=== PATIENT | male | born 1970 | race Caucasian/White ===

== ENCOUNTER 2017-06-15 21:40 | Emergency (ER) | payer BC ==
[2017-06-15 21:46] VITALS: BP 123/81
--- NOTE | 2017-06-15 22:06 | EDPHY ---
H & P Stated Complaint: FLU LIKE SX X 1 WK/CASTRO, SINUS MARCO, CHEST MARCO Time Seen by Provider: 06/15/17 22:05 HPI/ROS: CHIEF COMPLAINT: Sinus pressure, cough HISTORY OF PRESENT ILLNESS: The patient has a 1 week history of cough and myalgias. He had improvement of his symptoms. His symptoms returned this evening. He complains of frontal sinus pressure as well as some discomfort in his pharynx. He has a dry nonproductive cough. The patient denies significant past medical history. He denies any neck stiffness. He has no complaints of numbness or weakness. Denies abdominal pain, nausea, vomiting or diarrhea. REVIEW OF SYSTEMS: A comprehensive 10 point review of systems is otherwise negative aside from elements mentioned in the history of present illness. Source: Patient - Personal History Current Tetanus Diphtheria and Acellular Pertussis (TDAP): Unsure - Medical/Surgical History Hx Asthma: No Hx Chronic Respiratory Disease: No Hx Diabetes: No Hx Cardiac Disease: No Hx Renal Disease: No Hx Cirrhosis: No Hx Alcoholism: No Hx HIV/AIDS: No Hx Splenectomy or Spleen Trauma: No Other PMH: DENIES - Social History Smoking Status: Never smoked - Physical Exam Exam: General Appearance: Alert, no distress Eyes: Pupils equal and round no pallor or injection ENT, Mouth: Mucous membranes moist Respiratory: There are no retractions, lungs are clear to auscultation Cardiovascular: Regular rate and rhythm Gastrointestinal: Abdomen is soft and nontender, no masses, bowel sounds normal Neurological: A&O, normal motor function, normal sensory exam, normal cranial nerves Skin: Warm and dry, no rashes Musculoskeletal: Neck is supple nontender, no meningeal symptoms Extremities: symmetrical, full range of motion Constitutional: Initial Vital Signs Temperature (C) 37.0 C 06/15/17 21:44 Heart Rate 87 06/15/17 21:44 Respiratory Rate 16 06/15/17 21:44 Blood Pressure 123/81 H 06/15/17 21:44 O2 Sat (%) 97 06/15/17 21:44 O2 Delivery Mode Room Air Allergies/Adverse Reactions: No Known Allergies Allergy (Unverified 06/15/17 21:44) Home Medications: Medication Instructions Recorded NK [No Known Home Meds] 06/15/17 Medical Decision Making ED Course/Re-evaluation: The patient is well-appearing with likely frontal sinusitis in the setting of a recent viral upper respiratory infection. The patient has no clinical evidence of meningitis or pneumonia. I do feel it is reasonable to give him a prescription for antibiotics for possible sinus disease. He is advised to take Tylenol and ibuprofen as needed for pain. He is given customary aftercare instructions and return precautions. Departure - Departure Disposition: Home, Routine, Self-Care Clinical Impression: Sinusitis Condition: Good Instructions: Sinusitis (ED) Additional Instructions: 1. Take Ibuprofen or Motrin 600 mg by mouth three times a day. 2. Take antibiotics as directed Referrals: Shilpa Durand MD [Primary Care Provider] - As per Instructions
[2017-06-15] MEDS ORDERED: AMOXICILLIN/CLAVULANATE POT 875/125 MG TAB PO ONE (22:13)
== END 2017-06-15 22:21 | disposition home or self-care (01) ==
DX: J32.9 Chronic sinusitis, unspecified (principal)

== ENCOUNTER → 2017-09-11 | Outpatient (CLI) | payer BC | LOC: BMCIMAGING 10:12 | PROVIDERS: ATTEND Family Medicine | DX: M25.532 Pain in left wrist (principal) ==